=== PATIENT | male | born 1970 | race Caucasian/White ===

== ENCOUNTER 2020-03-28 18:36 | Emergency (ER) | payer OTHER, SELFPAY ==
[~2020-03-28] VITALS: Ht 177.8 cm; Wt 69.9 kg
[2020-03-28 18:43] VITALS: Ht 177.8 cm; Wt 69.9 kg
[2020-03-28 20:55] VITALS: BP 110/77
== END 2020-03-28 20:55 | disposition home or self-care (01) ==
LOC: ED 18:36
DX: R05 Cough (principal); R06.02 Shortness of breath; E11.9 Type 2 diabetes mellitus without complications